=== PATIENT | female | born 1960 | race American Indian/Alaskan Native ===

== ENCOUNTER 2016-10-13 19:31 | Emergency (ER) | payer OTHER ==
[2016-10-13 20:08] VITALS: BP 163/97
--- NOTE | 2016-10-14 07:13 | ED Elopement Review ---
ED Pt Elopement review - Call Back decision Pt Call Back Decision: No action required
== END 2016-10-14 02:15 | disposition left against medical advice (07) ==
LOC: ED 19:31
DX: R07.9 Chest pain, unspecified (principal); Z53.21 Procedure and treatment not carried out due to patient leaving prior to being seen by health care provider
CPT/HCPCS: 93005; 93010

== ENCOUNTER 2019-06-04 00:27 | Emergency (ER) | payer OTHER ==
[2019-06-04 00:39] VITALS: BP 154/91
[2019-06-04] MEDS ORDERED: IPRATROPIUM 0.02% NEBU 2.5 ML IH ONE (01:39)
[2019-06-04] MEDS ORDERED: dexAMETHasone 20 MG/5 ML VIAL IM ONE (01:39)
[2019-06-04] MEDS ORDERED: ALBUTEROL 2.5 MG/3 ML NEBU IH ONE (01:39)
--- NOTE | 2019-06-04 01:43 | Emergency Department Report ---
ED Shortness of Breath HPI - General Chief Complaint: Dyspnea/Respdistress Stated Complaint: PANCHO Time Seen by Provider: 06/04/19 01:38 Source: patient Mode of arrival: Ambulatory Limitations: No Limitations - History of Present Illness Initial Comments: 58-year-old -[place] female presents to the emergency room for dyspnea on exertion times one year. Patient reports that she started wheezing and has a dry cough. Patient reports that she thinks is allergic to cats. Patient states that her primary care provider due to allergy tests reported to her that it was normal. last saw her PCP 2 months ago. Patient reports he is placed on albuterol inhaler. Patient's daughter has cats since patient lives with the daughter. She has a past medical history of hypertension. MD Complaint: shortness of breath Onset/Timin -: year(s) Improves With: nothing Worsens With: nothing Context: allergen exposure (cats) Associated Symptoms: cough Treatments Prior to Arrival: bronchodilator - Related Data Home Oxygen Therapy: No Previous Rx's Medication Instructions Recorded Last Taken Type Ibuprofen [Motrin 600 MG tab] 600 mg PO Q8H PRN #40 tablet 03/23/15 Unknown Rx Metaxalone [Skelaxin] 800 mg PO TID #30 tablet 03/23/15 Unknown Rx traMADol [Ultram 50 MG tab] 50 mg PO Q6HR PRN #20 tablet 03/23/15 Unknown Rx Albuterol Sulfate [Proventil Hfa] 6.7 gm IH QID PRN #1 hfa.aer.ad 06/04/19 Unknown Rx guaiFENesin [Robitussin] 200 mg PO Q6HR PRN #20 tablet 06/04/19 Unknown Rx Allergies Allergy/AdvReac Type Severity Reaction Status Date / Time No Known Allergies Allergy Verified 10/13/16 20:09 ED Review of Systems ROS: Stated complaint: PANCHO Other details as noted in HPI Comment: All other systems reviewed and negative ED Past Medical Hx - Past Medical History Previous Medical History?: Yes Hx Hypertension: Yes - Surgical History Past Surgical History?: Yes Hx Cholecystectomy: Yes Additional Surgical History: . TUBAL LIGATION - Social History Smoking Status: Former Smoker Substance Use Type: None - Medications Home Medications: Home Medications Medication Instructions Recorded Confirmed Last Taken Type Ibuprofen [Motrin 600 MG tab] 600 mg PO Q8H PRN #40 tablet 03/23/15 Unknown Rx Metaxalone [Skelaxin] 800 mg PO TID #30 tablet 03/23/15 Unknown Rx traMADol [Ultram 50 MG tab] 50 mg PO Q6HR PRN #20 tablet 03/23/15 Unknown Rx Albuterol Sulfate [Proventil Hfa] 6.7 gm IH QID PRN #1 hfa.aer.ad 06/04/19 Unknown Rx guaiFENesin [Robitussin] 200 mg PO Q6HR PRN #20 tablet 06/04/19 Unknown Rx ED Physical Exam - General Limitations: No Limitations General appearance: alert, in no apparent distress - Head Head exam: Present: atraumatic, normocephalic - Eye Eye exam: Present: normal appearance - Respiratory Respiratory exam: Present: wheezes, rhonchi - Cardiovascular Cardiovascular Exam: Present: regular rate, normal rhythm. Absent: systolic murmur, diastolic murmur, rubs, gallop - GI/Abdominal GI/Abdominal exam: Present: soft, normal bowel sounds - Back Exam Back exam: Present: normal inspection, full ROM - Neurological Exam Neurological exam: Present: alert, oriented X3, normal gait - Psychiatric Psychiatric exam: Present: normal affect, normal mood - Skin Skin exam: Present: warm, dry, intact, normal color. Absent: rash ED Course Vital Signs 06/04/19 06/04/19 00:37 01:55 Temperature 98.1 F Pulse Rate 85 Pulse Rate [ 88 Anterior] Respiratory 20 Rate Respiratory 18 Rate [Anterior] Blood Pressure 154/91 O2 Sat by Pulse 95 Oximetry ED Medical Decision Making - Radiology Data Radiology results: report reviewed Patient: JOE RAMOS MR#: [id number] 50 : 1960 Acct:[id number] Age/Sex: 58 / F ADM Date: 06/04/19 Loc: ED Attending Dr: Ordering Physician: ADILSON GOODE Date of Service: 06/04/19 Procedure(s): XR chest routine 2V Accession Number(s): [id number] cc: ADILSON GOODE Fluoro Time In Minutes: CHEST 2 VIEWS INDICATION / CLINICAL INFORMATION: Difficulty breathing. COMPARISON: 06/16/09 FINDINGS: SUPPORT DEVICES: None. HEART / MEDIASTINUM: No significant abnormality. LUNGS / PLEURA: No acute airspace disease. Mild right lower lobe bronchial wall thickening which could represent bronchitis. No pneumothorax. ADDITIONAL FINDINGS: No significant additional findings. IMPRESSION: 1. Possible right lower lobe bronchitis. No pneumonia. Signer Name: Dameon Ryan MD Signed: 06/04/2019 2:24 AM Workstation Name: [id number] Transcribed By: KEREN Dictated By: Jose Angel Ryan MD Electronically Authenticated By: Jose Angel Ryan MD Signed Date/Time: 06/04/19223 DD/ 8 TD/TT: - Medical Decision Making 58-year-old -[place] female presents to the emergency room for dyspnea on exertion times one year. Patient reports that she started wheezing and has a dry cough. Patient reports that she thinks is allergic to cats. Patient states that her primary care provider due to allergy tests reported to her that it was normal. Patient last saw her PCP 2 months ago. Patient reports he is placed on albuterol inhaler. Patient's daughter has cats since patient lives with the daughter. She has a past medical history of hypertension. Atrovent 0.5 mg neb and, albuterol 5 mg neb, Decadron 10 mg IM, chest x-ray ordered Critical care attestation.: If time is entered above; I have spent that time in minutes in the direct care of this critically ill patient, excluding procedure time. ED Disposition Clinical Impression: Bronchitis Disposition: DC-01 TO HOME OR SELFCARE Is pt being admited?: No Does the pt Need Aspirin: No Condition: Stable Instructions: Acute Bronchitis (ED) Additional Instructions: Please take cough medication as prescribed. Increase her fluid intake. You can use her albuterol inhaler as needed. Follow-up with her primary care provider in the next 2-3 days or the emergency room if symptoms persist or gets worse. Prescriptions: Albuterol Sulfate [Proventil Hfa] 6.7 gm IH QID PRN #1 hfa.aer.ad PRN Reason: Shortness Of Breath guaiFENesin [Robitussin] 200 mg PO Q6HR PRN #20 tablet PRN Reason: Cough Referrals: PRIMARY CARE, [Primary Care Provider] - 3-5 Days your,Provider [Other] - 3-5 Days
--- NOTE | 2019-06-04 02:29 | XRay Report ---
CHEST 2 VIEWS INDICATION / CLINICAL INFORMATION: Difficulty breathing. COMPARISON: 06/16/09 FINDINGS: SUPPORT DEVICES: None. HEART / MEDIASTINUM: No significant abnormality. LUNGS / PLEURA: No acute airspace disease. Mild right lower lobe bronchial wall thickening which coul d represent bronchitis. No pneumothorax. ADDITIONAL FINDINGS: No significant additional findings. IMPRESSION: 1. Possible right lower lobe bronchitis. No pneumonia. Signer Name: Dameon Ryan MD Signed: 06/04/2019 2:24 AM Workstation Name: [id number]
== END 2019-06-04 03:47 | disposition home or self-care (01) ==
LOC: ED 00:27
DX: J40 Bronchitis, not specified as acute or chronic (principal); I10 Essential (primary) hypertension; Z90.49 Acquired absence of other specified parts of digestive tract; Z98.51 Tubal ligation status; Z87.891 Personal history of nicotine dependence; Z79.899 Other long term (current) drug therapy
CPT/HCPCS: 71046; 93005; 93010; 94640; 96372; 99283; J1100; 94644

== ENCOUNTER 2021-07-24 19:58 | Emergency (ER) | payer SELFPAY ==
[2021-07-24] MEDS ORDERED: ALBUTEROL 2.5 MG/3 ML NEBU IH ONE (20:10)
[2021-07-24] MEDS ORDERED: IPRATROPIUM 0.02% NEBU 2.5 ML IH ONE (20:10)
[2021-07-24] MEDS ORDERED: methylPREDNISolone Sod Succinate 125 MG/2 ML INJ IM ONE (20:11)
--- NOTE | 2021-07-24 21:22 | XRay Report ---
CHEST 2 VIEWS INDICATION / CLINICAL INFORMATION: COUGH, WHEEZING. COMPARISON: 06/04/2019 FINDINGS: SUPPORT DEVICES: None. HEART / MEDIASTINUM: No significant abnormality. LUNGS / PLEURA: No significant pulmonary or pleural abnormality. No pneumothorax. ADDITIONAL FINDINGS: No significant additional findings. IMPRESSION: 1. No acute findings. Signer Name: Ignacio Michel MD Signed: 07/24/2021 9:18 PM Workstation Name: [id number]
--- NOTE | 2021-07-24 22:00 | Emergency Department Report ---
- General Chief Complaint: Upper Respiratory Infection Stated Complaint: PANCHO Source: patient Mode of arrival: Ambulatory Limitations: No Limitations - History of Present Illness Initial Comments: Patient is a 60-year-old -Swedish female with a history of chronic bronchitis and hypertension who presents to the ED with complaint of acute onset persistent nasal and sinus congestion, frontal sinus pressure, persistent dry cough with intermittent wheezing for the last 1 week. Patient states that she has been taking [id number]-nte-orrcsqj medications with no relief. Patient states that she also ran out of her inhaler but is scheduled to pick it up in 2 days at the pharmacy. Patient denies fever, chills, nausea and vomiting, dizziness, syncope, headache, chest pain or palpitations. MD Complaint: cough, rhinorrhea, nasal congestion -: Sudden, week(s) (1) Severity: moderate Severity scale (0 -10): 5 Quality: aching Consistency: intermittent Worsens With: nothing Associated Symptoms: denies other symptoms, rhinorrhea, nasal congestion, cough, shortness of breath. denies: fever, chills, myalgias, diaphoresis, headache, sore throat, stiff neck, abdominal pain, nausea, vomiting, dysuria, rash, c onfusion, weight loss, epistaxis, hoarseness Treatments Prior to Arrival: none - Related Data Previous Rx's Medication Instructions Recorded Last Taken Type Ibuprofen [Motrin 600 MG tab] 600 mg PO Q8H PRN #40 tablet 03/23/15 Unknown Rx Metaxalone [Skelaxin] 800 mg PO TID #30 tablet 03/23/15 Unknown Rx traMADoL [Ultram 50 MG tab] 50 mg PO Q6HR PRN #20 tablet 03/23/15 Unknown Rx Albuterol Sulfate [Proventil Hfa] 6.7 gm IH QID PRN #1 hfa.aer.ad 06/04/19 Unknown Rx guaiFENesin [Robitussin] 200 mg PO Q6HR PRN #20 tablet 06/04/19 Unknown Rx Benzonatate [Tessalon Perles] 100 mg PO Q8HR #30 capsule 07/24/21 Unknown Rx Doxycycline Hyclate 100 mg PO Q12H #20 capsule 07/24/21 Unknown Rx methylPREDNISolone [Medrol 4MG 4 mg PO DAILY #21 tab.ds.pk 07/24/21 Unknown Rx DOSEPAK (21 tabs)] Allergies Allergy/AdvReac Type Severity Reaction Status Date / Time No Known Allergies Allergy Verified 10/13/16 20:09 ED Review of Systems ROS: Stated complaint: PANCHO Other details as noted in HPI Constitutional: denies: chills, fever Eyes: denies: eye pain, eye discharge, vision change ENT: congestion. denies: ear pain, throat pain Respiratory: cough, shortness of breath, wheezing Cardiovascular: denies: chest pain, palpitations Endocrine: no symptoms reported Gastrointestinal: denies: abdominal pain, nausea, vomiting, diarrhea Genitourinary: denies: urgency, dysuria, discharge Musculoskeletal: denies: back pain, joint swelling, arthralgia Skin: denies: rash, lesions Neurological: denies: headache, weakness, paresthesias Psychiatric: denies: anxiety, depression Hematological/Lymphatic: denies: easy bleeding, easy bruising ED Past Medical Hx - Past Medical History Previous Medical History?: Yes Hx Hypertension: Yes - Surgical History Past Surgical History?: Yes Hx Cholecystectomy: Yes Additional Surgical History: . TUBAL LIGATION - Social History Smoking Status: Former Smoker Substance Use Type: None - Medications Home Medications: Home Medications Medication Instructions Recorded Confirmed Last Taken Type Ibuprofen [Motrin 600 MG tab] 600 mg PO Q8H PRN #40 tablet 03/23/15 Unknown Rx Metaxalone [Skelaxin] 800 mg PO TID #30 tablet 03/23/15 Unknown Rx traMADoL [Ultram 50 MG tab] 50 mg PO Q6HR PRN #20 tablet 03/23/15 Unknown Rx Albuterol Sulfate [Proventil Hfa] 6.7 gm IH QID PRN #1 hfa.aer.ad 06/04/19 Unknown Rx guaiFENesin [Robitussin] 200 mg PO Q6HR PRN #20 tablet 06/04/19 Unknown Rx Benzonatate [Tessalon Perles] 100 mg PO Q8HR #30 capsule 07/24/21 Unknown Rx Doxycycline Hyclate 100 mg PO Q12H #20 capsule 07/24/21 Unknown Rx methylPREDNISolone [Medrol 4MG 4 mg PO DAILY #21 tab.ds.pk 07/24/21 Unknown Rx DOSEPAK (21 tabs)] ED Physical Exam - General Limitations: No Limitations General appearance: alert, in no apparent distress - Head Head exam: Present: atraumatic, normocephalic, normal inspection - Eye Eye exam: Present: normal appearance, PERRL, EOMI Pupils: Present: normal accommodation - ENT ENT exam: Present: normal orophraynx, mucous membranes moist, TM's normal bilaterally, normal external ear exam, other (Grossly congested nasal passages) - Neck Neck exam: Present: normal inspection, full ROM. Absent: tenderness - Respiratory Respiratory exam: Present: wheezes (Diffuse coarse wheezes throughout). Absent: respiratory distress, rales, rhonchi, chest wall tenderness, accessory muscle use, decreased breath sounds, prolonged expiratory - Cardiovascular Cardiovascular Exam: Present: regular rate, normal rhythm, normal heart sounds. Absent: systolic murmur, diastolic murmur, rubs, gallop - GI/Abdominal GI/Abdominal exam: Present: soft, normal bowel sounds. Absent: distended, tenderness, guarding, rebound, organomegaly, mass - Extremities Exam Extremities exam: Present: normal inspection, full ROM, normal capillary refill - Back Exam Back exam: Present: normal inspection, full ROM. Absent: tenderness, CVA tenderness (R), CVA tenderness (L), muscle spasm, paraspinal tenderness - Neurological Exam Neurological exam: Present: alert, oriented X3, CN II-XII intact, normal gait, reflexes normal - Psychiatric Psychiatric exam: Present: normal affect, normal mood - Skin Skin exam: Present: warm, dry, intact, normal color. Absent: rash ED Course Vital Signs 07/24/21 07/24/21 07/24/21 20:03 20:30 22:35 Temperature 98.0 F Pulse Rate 98 H 95 H Pulse Rate [ 98 H Bilateral Throughout] Respiratory 18 18 Rate Respiratory 20 Rate [Bilateral Throughout] Blood Pressure 117/78 Blood Pressure 116/73 [Right] O2 Sat by Pulse 94 94 Oximetry ED Medical Decision Making - Radiology Data [facility] [address] [place] [address] XRay Report Signed Patient: JOE RAMOS MR#: [id number] 50 : 1960 Acct:[id number] Age/Sex: 60 / F ADM Date: 07/24/21 Loc: ED Attending Dr: Ordering Physician: ADILSON DOMINGUEZ Date of Service: 07/24/21 Procedure(s): XR chest routine 2V Accession Number(s): [id number] cc: ADILSON DOMINGUEZ Fluoro Time In Minutes: CHEST 2 VIEWS INDICATION / CLINICAL INFORMATION: COUGH, WHEEZING. COMPARISON: 06/04/2019 FINDINGS: SUPPORT DEVICES: None. HEART / MEDIASTINUM: No significant abnormality. LUNGS / PLEURA: No significant pulmonary or pleural abnormality. No pneum othorax. ADDITIONAL FINDINGS: No significant additional findings. IMPRESSION: 1. No acute findings. Signer Name: Ignacio Cummins MD Signed: 07/24/2021 9:18 PM Workstation Name: [id number] Transcribed By: SB Dictated By: IGNACIO CUMMINS MD Electronically Authenticated By: IGNACIO CUMMINS MD Signed Date/Time: 07/24/212117 DD/ 16 TD/TT: - Medical Decision Making This is a 60-year-old -Swedish female with a history of chronic bronchitis who presents to the ED with complaint of acute onset persistent nasal and sinus congestion, frontal sinus pressure, persistent dry cough with intermittent wheezing for the last 1 week. Patient states that she has been taking qqut-gct-jyxjrvg medications with no relief. Patient states that she also ran out of her inhaler but is scheduled to pick it up in 2 days at the pharmacy. In the ED, patient is alert and oriented x3 and is not in any distress. Patient was treated in the ED with DuoNeb nebulizer as well as Solu- Medrol 125 mg IM injection. Chest x-ray showed no acute cardiopulmonary abnormalities or pneumonitis. On reevaluation, the wheezing resolved, patient felt better and will discharge home on medications. Patient is hemodynamically stable and was advised to follow-up with her primary care physician in 3 to 5 days for reevaluation or return to the ED immediately if her symptoms get worse. - Differential Diagnosis Bronchitis; pneumonia; URI; rhinitis; asthma Critical care attestation.: If time is entered above; I have spent that time in minutes in the direct care of this critically ill patient, excluding procedure time. ED Disposition Clinical Impression: Acute bronchitis with asthma with acute exacerbation Disposition: HOME / SELF CARE / HOMELESS Is pt being admited?: No Does the pt Need Aspirin: No Condition: Stable Instructions: Cough, Adult, Lzwm-[id number], Acute Bronchitis, Adult, Cprt-[id number] Additional Instructions: Chest x-ray shows no acute cardiopulmonary abnormalities or pneumonitis. Therefore take medications as advised, drink plenty of fluids and follow-up with your primary care physician in 5 to 7 days for reevaluation or return to the ED immediately if symptoms get worse. Prescriptions: Doxycycline Hyclate 100 mg PO Q12H #20 capsule methylPREDNISolone [Medrol 4MG DOSEPAK (21 tabs)] 4 mg PO DAILY #21 tab.ds.pk Benzonatate [Tessalon Perles] 100 mg PO Q8HR #30 capsule Referrals: [facility] [Provider Group] - 7-10 days Time of Disposition: 21:56 Print Language: CHINESE
[2021-07-24 22:36] VITALS: BP 116/73
== END 2021-07-24 22:35 | disposition home or self-care (01) ==
LOC: ED 19:58
DX: J20.9 Acute bronchitis, unspecified (principal); J45.909 Unspecified asthma, uncomplicated; I10 Essential (primary) hypertension; Z90.49 Acquired absence of other specified parts of digestive tract; Z98.51 Tubal ligation status; Z87.891 Personal history of nicotine dependence; Z79.899 Other long term (current) drug therapy
CPT/HCPCS: 71046; 94640; 96372; 99283; J2930; 94644

== ENCOUNTER 2021-10-18 18:29 | Emergency (ER) | payer SELFPAY ==
[2021-10-18] MEDS ORDERED: MECLIZINE 25 MG TAB PO ONE (23:10)
--- NOTE | 2021-10-18 23:12 | Emergency Department Report ---
ED Dizziness HPI - General Chief Complaint: Dizziness Stated Complaint: DIZZY Time Seen by Provider: 10/18/21 22:48 Source: patient Mode of arrival: Ambulatory Limitations: No Limitations - History of Present Illness Initial Comments: Patient presents secondary to dizziness. She actually describes vertiginous symptoms. She states that when she turns to the left she gets dizzy and throws up. When she turns to the right she still gets dizzy but it is not as intense. Any movement seems to make this worse. It started 6 weeks ago and has been intermittent. Patient states that some days are better than others. She talked to her oncologist who told her that she had vertigo. However nothing was given to her. She came here for evaluation and treatment. She denies any numbness or tingling in the arm or leg. She has no weakness in the face. There has been no slurred speech. Family state that the patient is at baseline other than her dizziness. There was no antecedent head trauma, fever, weakness, or paresthesias. - Related Data Previous Rx's Medication Instructions Recorded Last Taken Type Ibuprofen [Motrin 600 MG tab] 600 mg PO Q8H PRN #40 tablet 03/23/15 Unknown Rx Metaxalone [Skelaxin] 800 mg PO TID #30 tablet 03/23/15 Unknown Rx traMADoL [Ultram 50 MG tab] 50 mg PO Q6HR PRN #20 tablet 03/23/15 Unknown Rx Albuterol Sulfate [Proventil Hfa] 6.7 gm IH QID PRN #1 hfa.aer.ad 06/04/19 Unknown Rx guaiFENesin [Robitussin] 200 mg PO Q6HR PRN #20 tablet 06/04/19 Unknown Rx Benzonatate [Tessalon Perles] 100 mg PO Q8HR #30 capsule 07/24/21 Unknown Rx Doxycycline Hyclate 100 mg PO Q12H #20 capsule 07/24/21 Unknown Rx methylPREDNISolone [Medrol 4MG 4 mg PO DAILY #21 tab.ds.pk 07/24/21 Unknown Rx DOSEPAK (21 tabs)] Meclizine [Antivert] 25 mg PO TID PRN #30 tab 10/18/21 Unknown Rx Allergies Allergy/AdvReac Type Severity Reaction Status Date / Time No Known Allergies Allergy Verified 10/13/16 20:09 ED Review of Systems ROS: Stated complaint: DIZZY Other details as noted in HPI Comment: All other systems reviewed and negative Constitutional: denies: fever Eyes: denies: vision change ENT: denies: ear pain, throat pain Respiratory: denies: cough Cardiovascular: denies: chest pain Endocrine: denies: unexplained weight loss Gastrointestinal: denies: abdominal pain Genitourinary: denies: dysuria Musculoskeletal: denies: back pain Skin: denies: rash Neurological: denies: headache Hematological/Lymphatic: denies: easy bruising ED Past Medical Hx - Past Medical History Previous Medical History?: Yes Hx Hypertension: Yes Hx of Cancer: Yes (Uterine) - Surgical History Past Surgical History?: Yes Hx Cholecystectomy: Yes Additional Surgical History: . TUBAL LIGATION. PORT RIGHT chest. - Family History Family history: hypertension - Social History Smoking Status: Never Smoker Substance Use Type: None - Medications Home Medications: Home Medications Medication Instructions Recorded Confirmed Last Taken Type Ibuprofen [Motrin 600 MG tab] 600 mg PO Q8H PRN #40 tablet 03/23/15 Unknown Rx Metaxalone [Skelaxin] 800 mg PO TID #30 tablet 03/23/15 Unknown Rx traMADoL [Ultram 50 MG tab] 50 mg PO Q6HR PRN #20 tablet 03/23/15 Unknown Rx Albuterol Sulfate [Proventil Hfa] 6.7 gm IH QID PRN #1 hfa.aer.ad 06/04/19 Unknown Rx guaiFENesin [Robitussin] 200 mg PO Q6HR PRN #20 tablet 06/04/19 Unknown Rx Benzonatate [Tessalon Perles] 100 mg PO Q8HR #30 capsule 07/24/21 Unknown Rx Doxycycline Hyclate 100 mg PO Q12H #20 capsule 07/24/21 Unknown Rx methylPREDNISolone [Medrol 4MG 4 mg PO DAILY #21 tab.ds.pk 07/24/21 Unknown Rx DOSEPAK (21 tabs)] Meclizine [Antivert] 25 mg PO TID PRN #30 tab 10/18/21 Unknown Rx ED Physical Exam - General Limitations: No Limitations, Other (Pulse ox noted and normal) General appearance: alert, in no apparent distress - Head Head exam: Present: atraumatic, normocephalic, normal inspection - Eye Eye exam: Present: normal appearance, PERRL, EOMI, nystagmus (With left lateral gaze). Absent: scleral icterus - ENT ENT exam: Present: normal orophraynx, normal external ear exam - Neck Neck exam: Present: normal inspection. Absent: meningismus - Respiratory Respiratory exam: Present: normal lung sounds bilaterally. Absent: respiratory distress - Cardiovascular Cardiovascular Exam: Present: regular rate, normal rhythm - GI/Abdominal GI/Abdominal exam: Present: soft - Extremities Exam Extremities exam: Present: normal capillary refill - Back Exam Back exam: Absent: CVA tenderness (R), CVA tenderness (L) - Neurological Exam Neurological exam: Present: alert, oriented X3, CN II-XII intact, reflexes normal, other (No pronator drift. NIH score is 0.). Absent: motor sensory deficit - Psychiatric Psychiatric exam: Present: normal affect, normal mood - Skin Skin exam: Present: warm, dry ED Course Vital Signs 10/18/21 22:09 Temperature 98.6 F Pulse Rate 94 H Respiratory 17 Rate Blood Pressure 145/83 O2 Sat by Pulse 99 Oximetry - Reevaluation(s) Reevaluation #1: 10/18/21 23:41 Patient was seen and discharged after meclizine. ED Medical Decision Making - Medical Decision Making Patient presents with evidence of a positional vertigo. There is no head trauma suggestive of subdural or epidural hematomas. Patient has no neurologic symptom or deficit that would suggest stroke, intracranial lesion, tumor, or other central cause. This was abrupt onset, not insidious. I believe this represents a peripheral vertigo. Patient was treated symptomatically and referred to her PCP for outpatient evaluation and follow-up. Critical Care Time: No Critical care attestation.: If time is entered above; I have spent that time in minutes in the direct care of this critically ill patient, excluding procedure time. ED Disposition Clinical Impression: Vertigo Disposition: 01 HOME / SELF CARE / HOMELESS Is pt being admited?: No Condition: Stable Instructions: How to Perform the Lewis Maneuver, Dizziness Additional Instructions: Drink plenty water. Return for problems. Follow-up with your family doctor or referral physician for recheck. Prescriptions: Meclizine [Antivert] 25 mg PO TID PRN #30 tab PRN Reason: Vertigo Referrals: BLAYNE RAGLAND MD [Primary Care Provider] - 3-5 Days UMESH COSTA MD [Staff Physician] - 3-5 Days
[2021-10-18 23:48] VITALS: BP 148/86
== END 2021-10-18 23:47 | disposition home or self-care (01) ==
LOC: ED 18:29
DX: R42 Dizziness and giddiness (principal); I10 Essential (primary) hypertension; Z90.49 Acquired absence of other specified parts of digestive tract; Z98.890 Other specified postprocedural states; Z98.51 Tubal ligation status; Z79.899 Other long term (current) drug therapy
CPT/HCPCS: 99282